=== PATIENT | male | born 1940 | race Caucasian/White ===

== ENCOUNTER 2017-12-26 11:06 | Observation (INO) | payer MEDICARE ==
[~2017-12-26] VITALS: Ht 162.6 cm; Wt 60.2 kg
[~2017-12-26 11:06] MED LIST: ACET325T14 PO; AMIO200T PO; ASPI-621 PO; ATOR40TA PO; CARV3.1212 PO; DOCU-131 PO; FLUT1DIS3 INH; FURO-92 PO; HYDR-3245 PO; IPRA3AMP NPPB; LOSA25TA2 PO; OMEP20TA62 PO; POTA20TA14 PO; SUSTIVA 600 MG HOMEMEDPO; TAMS-11 PO; WARF7.5T6 PO-COUM; [UNRECOGNIZED DRUG - OTHER] HOMEMEDPO
[2017-12-26] MEDS ORDERED: GABA600T2 PO (11:35)
[2017-12-26] MEDS ORDERED: HYDR28OI3 TP (11:35)
[2017-12-26] MEDS ORDERED: TRIUMEG PO (11:35)
[2017-12-26] MEDS ORDERED: AMLO10TA2 PO (11:35)
[2017-12-26] MEDS ORDERED: LISI2.5T PO (11:35)
[2017-12-26] MEDS ORDERED: SODIUM CHLORIDE FLUSH 10ML SYR IVF ONE (12:00)
[2017-12-26 12:11] LABS: BASOPHILS # (AUTO) 0.01 x10^3/uL (0-0.1); BASOPHILS % (AUTO) 0 % (0-1); EOSINOPHILS # (AUTO) 0.11 x10^3/uL (0-0.4); EOSINOPHILS % (AUTO) 3 % (1-7); LYMPHOCYTES # (AUTO) 0.77 x10^3/uL (1-3.4); LYMPHOCYTES % (AUTO) 19 % (22-44); MD NO; MEAN CORPUSCULAR HEMOGLOBIN 33.8 pg (27.5-34.5); MEAN CORPUSCULAR VOLUME 99.4 fL (81-97); MEAN PLATELET VOLUME 7.9 fL (7.4-10.4); MONOCYTES # (AUTO) 0.69 x10^3/uL (0.2-0.8); MONOCYTES % (AUTO) 17 % (2-9); NEUTROPHILS # (AUTO) 2.42 x10^3/uL (1.8-6.8); NEUTROPHILS % (AUTO) 61 % (42-75); PLATELET COUNT 164 x10^3/uL (130-400); RED BLOOD COUNT 4.89 x10^6/uL (4.38-5.82); RED CELL DISTRIBUTION WIDTH 15.6 % (9.4-14.8)
[2017-12-26 12:12] LABS: INTERNATIONAL NORMALIZED RATIO 1.04 (0.93-1.1); PROTHROMBIN TIME 10.7 Seconds (9.6-11.5)
[2017-12-26 12:15] LABS: ALANINE AMINOTRANSFERASE 24 U/L (12-78); ALBUMIN 3.7 g/dL (3.4-5.0); ANION GAP 8 mmol/L (5-15); CALCIUM 8.5 mg/dL (8.5-10.1); CHLORIDE 109 mmol/L (98-107); CREATININE 1.27 mg/dL (0.7-1.3)
[2017-12-26 12:19] LABS: ALKALINE PHOSPHATASE 132 U/L (45-117); BILIRUBIN,TOTAL 0.5 mg/dL (0.2-1.0); TOTAL PROTEIN 8.1 g/dL (6.4-8.2); TROPONIN I < 0.015 ng/mL (0.000-0.045)
[2017-12-26] MEDS ORDERED: SODIUM CHLORIDE FLUSH 10ML SYR IVF PRN (13:30)
[2017-12-26 13:59] VITALS: BP 199/100
[2017-12-26] MEDS ORDERED: ACETAMINOPHEN 325 MG TABLET PO PRN (15:00)
[2017-12-26] MEDS ORDERED: AMLODIPINE 5 MG TABLET PO ONE (15:00)
[2017-12-26 15:23] VITALS: BP 160/83
[2017-12-26 15:43] LABS: TROPONIN I < 0.015 ng/mL (0.000-0.045)
[2017-12-26] MEDS: ENOXAPARIN 40 MG/0.4 ML SQ SCH (15:45)
[2017-12-26] MEDS ORDERED: ABAC1TAB14 PO (16:37)
[2017-12-26] MEDS ORDERED: DOCU-186 PO (16:37)
[2017-12-26] MEDS ORDERED: CARV6.252 PO (16:37)
[2017-12-26] MEDS ORDERED: GABA-826 PO (16:37)
[2017-12-26] MEDS ORDERED: HYDR-3237 PO (16:37)
[2017-12-26] MEDS ORDERED: AMLO5TAB2 PO (16:37)
[2017-12-26] MEDS ORDERED: RESCUE INHALER INH (16:59)
[2017-12-26] MEDS ORDERED: CARVEDILOL 6.25 MG TABLET ONE (17:39)
[2017-12-26] MEDS ORDERED: CARVEDILOL 3.125 MG TABLET PO SCH (18:00)
[2017-12-26] MEDS: CARVEDILOL 6.25 MG TABLET PO SCH (18:03)
[2017-12-26 18:04] VITALS: BP 132/93
[2017-12-26 19:30] VITALS: BP 109/67
[2017-12-26] MEDS: ALBUTEROL/IPRATROPIUM 2.5MG/0.5MG, 3 ML NPPB SCH (19:30)
[2017-12-26] MEDS ORDERED: ALBUTEROL/IPRATROPIUM 2.5MG/0.5MG, 3 ML NPPB PRN (20:00)
[2017-12-26] MEDS: GABAPENTIN 100 MG CAPSULE PO SCH (20:55)
[2017-12-26 20:58] LABS: TROPONIN I < 0.015 ng/mL (0.000-0.045)
[2017-12-26] MEDS ORDERED: DOCUSATE 100 MG CAPSULE PO SCH (21:00)
[2017-12-26] MEDS ORDERED: DOCUSATE 100 MG CAPSULE PO PRN (21:00)
[2017-12-26] MEDS ORDERED: TEMAZEPAM 15 MG CAPSULE PO PRN (21:30)
[2017-12-26] MEDS ORDERED: BENZONATATE 100 MG CAPSULE PO PRN (21:30)
[2017-12-27 00:13] VITALS: BP 102/62
[2017-12-27 05:13] LABS: CHLORIDE 108 mmol/L (98-107); MEAN CORPUSCULAR HEMOGLOBIN 33.2 pg (27.5-34.5); MEAN CORPUSCULAR HGB CONC 33.3 g/dL (33.2-36.2); MEAN CORPUSCULAR VOLUME 99.8 fL (81-97); PLATELET COUNT 134 x10^3/uL (130-400); RED BLOOD COUNT 4.28 x10^6/uL (4.38-5.82); RED CELL DISTRIBUTION WIDTH 15.4 % (9.4-14.8)
[2017-12-27 05:26] LABS: ALANINE AMINOTRANSFERASE 22 U/L (12-78); ALBUMIN 3.1 g/dL (3.4-5.0); ALKALINE PHOSPHATASE 107 U/L (45-117); ANION GAP 8 mmol/L (5-15); BILIRUBIN,TOTAL 0.4 mg/dL (0.2-1.0); CALCIUM 8.4 mg/dL (8.5-10.1); CREATININE 1.51 mg/dL (0.7-1.3); TOTAL PROTEIN 6.7 g/dL (6.4-8.2)
[2017-12-27 05:54] LABS: MD YES
[2017-12-27 05:58] LABS: BAND#(MANUAL) 0.11 x10^3/uL; BANDS%(MANUAL) 3 % (0-7); EOS#(MANUAL) 0.18 x10^3/uL (0.0-0.4); EOS% (MANUAL) 5 % (1-7); LYMPHS% (MANUAL) 37 % (22-44); MONOS% (MANUAL) 20 % (2-9); REACTIVE LYMPHS # (MANUAL) 0.18 x10^3/uL (0-0); REACTIVE LYMPHS % (MANUAL) 5 % (0-0); SEG#(MANUAL) 1.05 x10^3/uL (1.8-6.8); SEGS% (MANUAL) 30 % (42-75)
[2017-12-27 05:59] LABS: <PLATELET ESTIMATE> DECREASED; <PLT MORPHOLOGY> NORMAL PLT MORPH; <RBC MORPHOLOGY> NORMAL
[2017-12-27] MEDS: ALBUTEROL/IPRATROPIUM 2.5MG/0.5MG, 3 ML NPPB SCH ×4 (07:00→18:52)
[2017-12-27 07:20] VITALS: BP 110/66
[2017-12-27] MEDS: GABAPENTIN 100 MG CAPSULE PO SCH ×2 (08:10→16:00)
[2017-12-27] MEDS: CARVEDILOL 6.25 MG TABLET PO SCH (08:10)
[2017-12-27] MEDS ORDERED: REGADENOSON 0.4 MG/5 ML SYRINGE ONE (08:14)
[2017-12-27] MEDS ORDERED: BENZONATATE 100 MG CAPSULE ONE (08:20)
[2017-12-27] MEDS: BENZONATATE 100 MG CAPSULE PO SCH ×3 (08:30→16:00)
[2017-12-27] MEDS ORDERED: HYDROCORTISONE ACETATE TP SCH (09:00)
[2017-12-27] MEDS ORDERED: AMLODIPINE 5 MG TABLET PO ONE (09:00)
[2017-12-27] MEDS ORDERED: LISINOPRIL 5 MG TABLET PO SCH ×2 (09:00)
[2017-12-27] MEDS ORDERED: ASPIRIN 81 MG TABLET EC PO SCH (09:00)
[2017-12-27 14:03] VITALS: BP 116/78
[2017-12-27] MEDS: ENOXAPARIN 40 MG/0.4 ML SQ SCH (15:00)
[2017-12-27] MEDS ORDERED: BENZ-17 PO (15:46)
[2017-12-27 20:39] VITALS: BP 113/72
== END 2017-12-27 21:56 | disposition home or self-care (01) ==
LOC: ED 11:42 → INTOOBSV 13:09 → EDIP 13:09 → 5SO 13:55
PROVIDERS: ADMIT Hospitalist; ATTEND Hospitalist
DX: R07.9 Chest pain, unspecified (principal); B20 Human immunodeficiency virus [HIV] disease; I25.10 Atherosclerotic heart disease of native coronary artery without angina pectoris; I10 Essential (primary) hypertension; K21.9 Gastro-esophageal reflux disease without esophagitis; I73.9 Peripheral vascular disease, unspecified; D64.9 Anemia, unspecified; F17.200 Nicotine dependence, unspecified, uncomplicated; J44.9 Chronic obstructive pulmonary disease, unspecified; Z95.1 Presence of aortocoronary bypass graft
CPT/HCPCS: 36415; 71045; 78452; 80053; 83735; 83880; 84484; 85025; 85610; 85730; 93005; 93017; 93308; 93321; 93325; 94640; 96372; 99285; A9502; C9898; G0378; J1650; J2785; J7620

== ENCOUNTER → 2018-01-07 | Outpatient (CLI) | payer MEDICARE ==
[~2018-01-07] MED LIST changes: +ABAC1TAB14 PO; +AMLO10TA2 PO; +AMLO5TAB2 PO; +BENZ-17 PO; +CARV6.252 PO; +DOCU-186 PO; +GABA-826 PO; +GABA600T2 PO; +HYDR-3237 PO; +HYDR28OI3 TP; +LISI2.5T PO; +RESCUE INHALER INH; +TRIUMEG PO
== END ==
LOC: CFH 11:30
PROVIDERS: ATTEND Internal Medicine Critical Care Medicine
DX: J43.2 Centrilobular emphysema (principal); I70.0 Atherosclerosis of aorta; N28.1 Cyst of kidney, acquired
CPT/HCPCS: 71250

== ENCOUNTER 2018-01-28 06:17 | Day surgery (SDC) | payer MEDICARE ==
[~2018-01-28] VITALS: Ht 162.6 cm; Wt 62.0 kg
[~2018-01-28 06:17] MED LIST changes: +WARF7.5T46 PO-COUM; -WARF7.5T6 PO-COUM
[2018-01-28 07:04] VITALS: BP 146/82
[2018-01-28] MEDS ORDERED: LIDOCAINE-MPF 2% ,5ML ONE (07:48)
[2018-01-28] MEDS ORDERED: MIDAZOLAM 1 MG/ML, 5ML ONE (07:58)
[2018-01-28] MEDS ORDERED: FENTANYL PF 100 MCG/2ML ONE (07:58)
[2018-01-28] MEDS ORDERED: FLUMAZENIL 0.1 MG/1 ML, 5ML ONE (07:59)
[2018-01-28] MEDS ORDERED: NALOXONE 1 MG/ML, 2ML ONE (07:59)
== END 2018-01-28 12:35 ==
LOC: OUT 06:17
PROVIDERS: ATTEND Internal Medicine Critical Care Medicine
DX: J98.4 Other disorders of lung (principal); I10 Essential (primary) hypertension
CPT/HCPCS: 32405; 71045; 77012; 88305; 99156; 99157; C2613; J2250; J3010; J3490; J2310

== ENCOUNTER → 2018-02-08 | Outpatient (CLI) | payer MEDICARE | END | disposition home or self-care (01) | LOC: ROC 09:07 | PROVIDERS: ATTEND Radiology Radiation Oncology | DX: C34.31 Malignant neoplasm of lower lobe, right bronchus or lung (principal); I10 Essential (primary) hypertension; I25.10 Atherosclerotic heart disease of native coronary artery without angina pectoris; I25.2 Old myocardial infarction; J44.9 Chronic obstructive pulmonary disease, unspecified; Z79.82 Long term (current) use of aspirin; Z83.3 Family history of diabetes mellitus; Z87.891 Personal history of nicotine dependence; Z95.2 Presence of prosthetic heart valve | CPT/HCPCS: 99214; G0463 ==

== ENCOUNTER → 2018-06-14 | Outpatient (CLI) | payer MEDICARE ==
[~2018-06-14] MED LIST changes: -AMLO10TA2 PO; +AMLO10TA6 PO; -AMLO5TAB2 PO; +AMLO5TAB7 PO; -IPRA3AMP NPPB; +IPRA3AMP30 NPPB
== END | disposition home or self-care (01) ==
LOC: ROC 08:00
PROVIDERS: ATTEND Radiology Radiation Oncology
DX: C34.31 Malignant neoplasm of lower lobe, right bronchus or lung (principal); J44.9 Chronic obstructive pulmonary disease, unspecified; Z87.891 Personal history of nicotine dependence
CPT/HCPCS: 99213; G0463

== ENCOUNTER → 2018-09-17 | Outpatient (CLI) | payer MEDICARE ==
[~2018-09-17] MED LIST changes: +AMLO-150 PO; -AMLO5TAB7 PO; -ASPI-621 PO; +ASPI81TA45 PO
== END | disposition home or self-care (01) ==
LOC: CFH 10:40
PROVIDERS: ATTEND Radiology Radiation Oncology
DX: R91.1 Solitary pulmonary nodule (principal)
CPT/HCPCS: 71250

== ENCOUNTER → 2018-09-20 | Outpatient (CLI) | payer MEDICARE | END | disposition home or self-care (01) | LOC: ROC 07:50 | PROVIDERS: ATTEND Radiology Radiation Oncology | DX: C34.31 Malignant neoplasm of lower lobe, right bronchus or lung (principal) | CPT/HCPCS: 99212; G0463 ==

== ENCOUNTER 2019-12-29 12:55 | Observation (INO) | payer MEDICARE ==
[~2019-12-29] VITALS: Ht 162.6 cm; Wt 57.4 kg
[~2019-12-29 12:55] MED LIST changes: -AMLO10TA6 PO; +AMLO10TA8 PO; -GABA600T2 PO; +GABA600T7 PO
--- NOTE | 2019-12-29 13:37 | NUR ---
79 Y/O MALE PRESENTS TO ED WITH C/O GIB. PER PT "I STARTED BLEEDING OUT MY BUTT THIS MORNING." NO C/O N/V/D, TRAUMA, SYNCOPE, CP, SOB. PT WEARS HOME OXYGEN AT 2LPM 13/04. PT PLACED ON CON TPULSE OX, NIBP. EDMD JUST LEFT BEDSIDE.
[2019-12-29 14:09] LABS: BASOPHILS # (AUTO) 0.04 x10^3/uL (0-0.1); BASOPHILS % (AUTO) 1 % (0-1); EOSINOPHILS # (AUTO) 0.19 x10^3/uL (0-0.4); EOSINOPHILS % (AUTO) 3 % (1-7); LYMPHOCYTES # (AUTO) 1.23 x10^3/uL (1-3.4); LYMPHOCYTES % (AUTO) 21 % (22-44); MD NO; MEAN CORPUSCULAR HEMOGLOBIN 34.7 pg (27.5-34.5); MEAN CORPUSCULAR VOLUME 104.9 fL (81-97); MEAN PLATELET VOLUME 7.9 fL (7.4-10.4); MONOCYTES # (AUTO) 0.79 x10^3/uL (0.2-0.8); MONOCYTES % (AUTO) 13 % (2-9); NEUTROPHILS # (AUTO) 3.71 x10^3/uL (1.8-6.8); NEUTROPHILS % (AUTO) 62 % (42-75); PLATELET COUNT 176 x10^3/uL (130-400); RED BLOOD COUNT 3.93 x10^6/uL (4.38-5.82); RED CELL DISTRIBUTION WIDTH 15.2 % (9.4-14.8)
--- NOTE | 2019-12-29 14:09 | NUR ---
Olman freed in [facility] - 12/29/19 at 1409 by BOLIVAR PT OUT OF ROOM AT IMAGING
--- NOTE | 2019-12-29 14:10 | NUR ---
PT OUT OF ROOM AT IMAGING
[2019-12-29 14:14] LABS: INTERNATIONAL NORMALIZED RATIO 0.98 (0.93-1.1); PROTHROMBIN TIME 10.4 Seconds (9.6-11.5)
[2019-12-29 14:17] LABS: ALBUMIN 3.5 g/dL (3.4-5.0); ANION GAP 6 mmol/L (5-15); CHLORIDE 107 mmol/L (98-107)
[2019-12-29 14:21] LABS: ALANINE AMINOTRANSFERASE 18 U/L (12-78); ALKALINE PHOSPHATASE 98 U/L (45-117); BILIRUBIN,TOTAL 0.5 mg/dL (0.2-1.0); CREATININE 1.18 mg/dL (0.7-1.3); TOTAL PROTEIN 7.7 g/dL (6.4-8.2)
--- NOTE | 2019-12-29 14:22 | NUR ---
PT BACK FROM IMAGING
--- NOTE | 2019-12-29 14:37 | NUR ---
PT RESTING ON GURNEY. PT GIVEN URINAL FOR SAMPLE. NADN. VSS.
--- NOTE | 2019-12-29 16:17 | NUR ---
PT RESTING ON GUROSVALDO .NADN. VSS. NO OTHER NEEDS REQUESTED AT THIS TIME .UA SENT TO LAB.
--- NOTE | 2019-12-29 16:17 | NUR ---
LATE ENTRY FOR 1520 PT RESTING ON [employer]. NO NEEDS REQUESTED AT THIS TIME. AWAITING LABS
[2019-12-29 16:41] LABS: MICROSCOPIC NOT IND
[2019-12-29 16:51] LABS: CULTURE INDICATED? NO
[2019-12-29] MEDS ORDERED: ACETAMINOPHEN 325 MG TABLET PO PRN (17:00)
[2019-12-29] MEDS: SODIUM CHLORIDE 0.9% 1,000 ML IV SCH (17:24)
--- NOTE | 2019-12-29 17:24 | NUR ---
TASK RN: PIV ACCESS OBTAINED, 20 R FA. FLUIDS BEING ADMINISTERED PER EMAR.
--- NOTE | 2019-12-29 17:31 | NUR ---
REPORT TO CARLOS A RESENDEZ. ALL QUESTIONS ANSWERED.
[2019-12-29 18:12] VITALS: BP 187/88
[2019-12-29] MEDS: BUDESONIDE 0.5 MG/2 ML INHA NPPB SCH ×2 (18:30→20:23)
[2019-12-29] MEDS: ALBUTEROL SULFATE 2.5 MG/3 ML NPPB SCH (18:30)
[2019-12-29 19:58] VITALS: BP 139/76
[2019-12-29] MEDS: GABAPENTIN 100 MG CAPSULE PO SCH (20:55)
[2019-12-29] MEDS ORDERED: CARVEDILOL 6.25 MG TABLET PO SCH (21:00)
[2019-12-29] MEDS ORDERED: DOLUTEGRAVIR PO SCH (21:00)
[2019-12-29] MEDS ORDERED: ABACAVIR PO SCH (21:00)
[2019-12-29] MEDS ORDERED: LAMIVUDI PO SCH (21:00)
[2019-12-30] MEDS: ALBUTEROL SULFATE 2.5 MG/3 ML NPPB SCH ×2 (00:30→06:30)
[2019-12-30 01:01] VITALS: BP 144/81
[2019-12-30 05:19] LABS: ANION GAP 4 mmol/L (5-15); BASOPHILS # (AUTO) 0.03 x10^3/uL (0-0.1); BASOPHILS % (AUTO) 1 % (0-1); CALCIUM 8.2 mg/dL (8.5-10.1); CHLORIDE 112 mmol/L (98-107); CREATININE 0.95 mg/dL (0.7-1.3); EOSINOPHILS # (AUTO) 0.18 x10^3/uL (0-0.4); EOSINOPHILS % (AUTO) 4 % (1-7); LYMPHOCYTES # (AUTO) 1.15 x10^3/uL (1-3.4); LYMPHOCYTES % (AUTO) 25 % (22-44); MD NO; MEAN CORPUSCULAR HEMOGLOBIN 34.9 pg (27.5-34.5); MEAN CORPUSCULAR HGB CONC 33.2 g/dL (33.2-36.2); MEAN CORPUSCULAR VOLUME 105.2 fL (81-97); MONOCYTES % (AUTO) 15 % (2-9); NEUTROPHILS # (AUTO) 2.59 x10^3/uL (1.8-6.8); NEUTROPHILS % (AUTO) 56 % (42-75); PLATELET COUNT 140 x10^3/uL (130-400); RED BLOOD COUNT 3.39 x10^6/uL (4.38-5.82); RED CELL DISTRIBUTION WIDTH 14.9 % (9.4-14.8)
[2019-12-30] MEDS: SODIUM CHLORIDE 0.9% 1,000 ML IV SCH (05:31)
[2019-12-30 07:17] VITALS: BP 160/78
[2019-12-30] MEDS: GABAPENTIN 100 MG CAPSULE PO SCH (08:15)
[2019-12-30] MEDS: BUDESONIDE 0.5 MG/2 ML INHA NPPB SCH (09:00)
[2019-12-30] MEDS ORDERED: ASPIRIN 81 MG TABLET EC PO SCH (09:00)
[2019-12-30] MEDS ORDERED: LISINOPRIL 5 MG TABLET PO SCH (09:00)
[2019-12-30] MEDS ORDERED: AMLODIPINE 5 MG TABLET PO SCH (09:00)
[2019-12-30] MEDS ORDERED: CARVEDILOL 6.25 MG TABLET PO SCH (09:00)
[2019-12-30 14:34] VITALS: BP 178/82
== END 2019-12-30 15:24 | disposition home or self-care (01) ==
LOC: ED 13:32 → EDIP 16:56 → INTOOBSV 16:56 → 3N 18:05
PROVIDERS: ADMIT Internal Medicine Infectious Disease; ATTEND Internal Medicine Infectious Disease
DX: K57.31 Diverticulosis of large intestine without perforation or abscess with bleeding (principal); I71.4 Abdominal aortic aneurysm, without rupture; I73.9 Peripheral vascular disease, unspecified; I10 Essential (primary) hypertension; I25.10 Atherosclerotic heart disease of native coronary artery without angina pectoris; I48.0 Paroxysmal atrial fibrillation; J44.9 Chronic obstructive pulmonary disease, unspecified; Z79.82 Long term (current) use of aspirin; Z87.19 Personal history of other diseases of the digestive system; Z92.3 Personal history of irradiation; Z79.899 Other long term (current) drug therapy; B20 Human immunodeficiency virus [HIV] disease; Z87.891 Personal history of nicotine dependence; Z95.1 Presence of aortocoronary bypass graft
CPT/HCPCS: 36415; 74176; 80048; 80053; 81003; 82607; 83605; 84443; 85018; 85025; 85610; 85730; 94640; 99285; G0378; J7030; J7613; J7626